=== PATIENT | male | born 1975 | race Caucasian/White ===

== ENCOUNTER 2021-04-16 04:17 | Emergency (ER) | payer MEDICAID, OTHER ==
[~2021-04-16] VITALS: Ht 172.7 cm; Wt 99.8 kg
[2021-04-16 04:23] VITALS: BP 161/98
[2021-04-16] MEDS ORDERED: ENALAPRIL 5 MG TAB PO ONE (04:35)
[2021-04-16] MEDS ORDERED: KETOROLAC 60 MG/2 ML VIAL IM ONE (04:55)
[2021-04-16] MEDS ORDERED: IBUP-2213 PO (05:03)
[2021-04-16] MEDS ORDERED: ONDA8TAB87 PO (05:03)
[2021-04-16 06:10] VITALS: BP 145/87
== END 2021-04-16 06:10 | disposition home or self-care (01) ==
LOC: MED 04:17
DX: R51.9 Headache, unspecified (principal); R07.9 Chest pain, unspecified; I10 Essential (primary) hypertension; M79.604 Pain in right leg; M79.602 Pain in left arm
CPT/HCPCS: 70450; 93005; 96372; 99284; J1885